=== PATIENT | male | born 1980 | race Two or more races ===

== ENCOUNTER 2024-05-25 03:38 | Emergency (ER) | payer OTHER ==
[~2024-05-25] VITALS: Ht 193 cm; Wt 108.9 kg
[~2024-05-25 03:38] MED LIST: MOTRIN800 MG PO
[2024-05-25 04:22] LABS: HEMATOCRIT 41.2 % (39.0-48.0); HEMOGLOBIN 13.9 g/dL (13-16.00); MEAN CELL VOLUME 78.9 fL (80.0-100.00); MEAN CORPUSCULAR HEMOGLOBIN 26.6 pg (27.00-32.0); MEAN CORPUSCULAR HGB CONC 33.7 g/dl (32.0-36.0); PLATELET COUNT 206 K/uL (150-450); RED BLOOD COUNT 5.22 M/uL (4.00-6.00); RED CELL DISTRIBUTION WIDTH 14.4 % (11.5-14.5)
[2024-05-25] MEDS ORDERED: ASPIRIN 325 MG TABLET.EC PO STA (04:38)
[2024-05-25 04:45] LABS: ALBUMIN 3.7 gm/dL (3.4-5.0); BILIRUBIN TOTAL 0.21 mg/dL (0.3-1.2); CALCIUM 8.8 mg/dL (8.5-10.1); CREATININE SERUM 1.29 mg/dL (0.70-1.30); GFR 61.38; GLOBULINA 3.6 G/DL (2.4-3.5); POTASSIUM 3.96 mEq/L (3.5-5.1); TOTAL PROTEIN 7.3 gm/dL (6.4-8.2)
== END 2024-05-25 11:50 | disposition home or self-care (01) ==
LOC: ER 03:38
PROVIDERS: General Practice
DX: R00.2 Palpitations (principal); R07.89 Other chest pain